=== PATIENT | female | born 1960 | race Caucasian/White ===

== ENCOUNTER → 2017-03-01 | Outpatient (CLI) | payer OTHER | LOC: HEART 5 01-29 08:30 | DX: I20.9 Angina pectoris, unspecified (principal) | CPT/HCPCS: 93306 ==

== ENCOUNTER → 2021-04-22 | Outpatient (CLI) | payer OTHER ==
[2021-04-22 14:08] LABS: HEMOGLOBIN 8.8 gm/dl (12.3-15.3); RED BLOOD COUNT 2.8 M/UL (4.00-5.10)
== END ==
LOC: LAB 13:31
PROVIDERS: Nurse Practitioner Family
DX: Z00.00 Encounter for general adult medical examination without abnormal findings (principal); F41.9 Anxiety disorder, unspecified; G25.0 Essential tremor; E11.42 Type 2 diabetes mellitus with diabetic polyneuropathy; R41.89 Other symptoms and signs involving cognitive functions and awareness
CPT/HCPCS: 36415; 80053; 81001; 82607; 82746; 84207; 84443; 85025; 87077; 87086; 87186

== ENCOUNTER 2022-01-05 05:21 | Inpatient (IN) | payer OTHER ==
[~2022-01-05] VITALS: Ht 157.5 cm; Wt 56.7 kg
[~2022-01-05 05:21] MED LIST: CYANOCOBAL1000 MCG/1 IM
[2022-01-05 14:14] LABS: HEMOGLOBIN 8.7 gm/dl (12.3-15.3); RED BLOOD COUNT 2.83 M/UL (4.00-5.10); WHITE BLOOD COUNT 12.8 K/UL (4.5-11.0)
[2022-01-05] MEDS ORDERED: KLONOPIN TAB 00.5 MG PO (17:53)
[2022-01-05] MEDS ORDERED: IBUPROFEN800 MG PO (18:01)
[2022-01-05] MEDS ORDERED: LEVEMIR100 UNIT/1 SC (18:01)
[2022-01-05] MEDS ORDERED: NAMENDA10 MG PO (18:02)
[2022-01-05] MEDS ORDERED: OMEPRAZOLE40 MG PO (18:02)
[2022-01-05] MEDS ORDERED: PRIMIDONE50 MG PO (18:03)
[2022-01-05] MEDS ORDERED: HYDROCODONE-AC1 EAC1 PO (18:08)
[2022-01-05] MEDS ORDERED: FEROSUL325 MG PO (18:09)
[2022-01-05] MEDS ORDERED: HUMALOG100 UNIT/3 SC (18:11)
[2022-01-05] MEDS ORDERED: MEGACE TAB 20 M20 MG PO (18:12)
[2022-01-06 03:23] LABS: HEMOGLOBIN 7.7 gm/dl (12.3-15.3); RED BLOOD COUNT 2.57 M/UL (4.00-5.10); WHITE BLOOD COUNT 12.2 K/UL (4.5-11.0)
[2022-01-07 03:51] LABS: HEMOGLOBIN 7.6 gm/dl (12.3-15.3); RED BLOOD COUNT 2.48 M/UL (4.00-5.10); WHITE BLOOD COUNT 14.3 K/UL (4.5-11.0)
[2022-01-08 04:23] LABS: HEMOGLOBIN 7.8 gm/dl (12.3-15.3); RED BLOOD COUNT 2.55 M/UL (4.00-5.10); WHITE BLOOD COUNT 15.2 K/UL (4.5-11.0)
[2022-01-08 04:54] LABS: BUN/CREATININE RATIO 17 (0-10)
[2022-01-09 04:56] LABS: HEMOGLOBIN 7.9 gm/dl (12.3-15.3); RED BLOOD COUNT 2.57 M/UL (4.00-5.10); WHITE BLOOD COUNT 12.8 K/UL (4.5-11.0)
[2022-01-10 03:41] LABS: HEMOGLOBIN 7.7 gm/dl (12.3-15.3); RED BLOOD COUNT 2.54 M/UL (4.00-5.10); WHITE BLOOD COUNT 11.4 K/UL (4.5-11.0)
[2022-01-10 03:56] LABS: BUN/CREATININE RATIO 13 (0-10)
[2022-01-12 07:21] LABS: BUN/CREATININE RATIO 12 (0-10)
[2022-01-13 04:40] LABS: HEMOGLOBIN 7.3 gm/dl (12.3-15.3); RED BLOOD COUNT 2.4 M/UL (4.00-5.10); WHITE BLOOD COUNT 7.3 K/UL (4.5-11.0)
== END 2022-01-13 13:25 | disposition home health service (06) | DRG 637 ==
LOC: M/S 05:21
PROVIDERS: Internal Medicine; Physician Assistant; Physician Assistant Medical; ADMIT Internal Medicine
DX: E11.622 Type 2 diabetes mellitus with other skin ulcer (principal); A41.9 Sepsis, unspecified organism; J18.9 Pneumonia, unspecified organism; Z20.822 Contact with and (suspected) exposure to COVID-19; G93.41 Metabolic encephalopathy; R65.20 Severe sepsis without septic shock; L97.829 Non-pressure chronic ulcer of other part of left lower leg with unspecified severity; N30.00 Acute cystitis without hematuria; F11.20 Opioid dependence, uncomplicated; Y95 Nosocomial condition; E78.5 Hyperlipidemia, unspecified; I12.9 Hypertensive chronic kidney disease with stage 1 through stage 4 chronic kidney disease, or unspecified chronic kidney disease; N18.30 Chronic kidney disease, stage 3 unspecified; D50.9 Iron deficiency anemia, unspecified; L08.9 Local infection of the skin and subcutaneous tissue, unspecified; J44.9 Chronic obstructive pulmonary disease, unspecified; G25.0 Essential tremor; K21.9 Gastro-esophageal reflux disease without esophagitis; E87.6 Hypokalemia; D63.1 Anemia in chronic kidney disease; H54.62 Unqualified visual loss, left eye, normal vision right eye; E11.22 Type 2 diabetes mellitus with diabetic chronic kidney disease; E11.65 Type 2 diabetes mellitus with hyperglycemia; B95.61 Methicillin susceptible Staphylococcus aureus infection as the cause of diseases classified elsewhere; F17.210 Nicotine dependence, cigarettes, uncomplicated; G20 Parkinson's disease; F02.80 Dementia in other diseases classified elsewhere, unspecified severity, without behavioral disturbance, psychotic disturbance, mood disturbance, and anxiety; Z82.49 Family history of ischemic heart disease and other diseases of the circulatory system; Z90.49 Acquired absence of other specified parts of digestive tract; Z90.710 Acquired absence of both cervix and uterus; Z88.0 Allergy status to penicillin; Z88.8 Allergy status to other drugs, medicaments and biological substances; Z91.041 Radiographic dye allergy status; Z83.3 Family history of diabetes mellitus; Z95.5 Presence of coronary angioplasty implant and graft
CPT/HCPCS: 0240U; 36415; 71045; 73630; 80048; 80053; 80202; 81001; 82550; 82553; 82962; 83036; 83735; 83880; 84132; 85025; 85027; 85610; 87040; 87070; 87077; 87081; 87086; 87186; 87205; 93005; 93925; 94640; 94664; 94760; 97110; 97162; 97166; 97530; 97530-GP-CQ; A6212; J1335; J1642; J1956; J3370; J7030; J7070